=== PATIENT | female | born 2000 | race Caucasian/White ===

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

== ENCOUNTER 2019-04-18 10:45 | Emergency (ER) | payer MEDICAID ==
[~2019-04-18] VITALS: Ht 157.5 cm; Wt 64.9 kg
[2019-04-18 10:51] VITALS: Ht 157.5 cm; Wt 64.9 kg
[2019-04-18 11:07] VITALS: BP 118/70
== END 2019-04-18 11:07 | disposition home or self-care (01) ==
LOC: ED 10:45
DX: L30.9 Dermatitis, unspecified (principal)

== ENCOUNTER 2019-08-23 16:29 | Emergency (ER) | payer SELFPAY ==
[~2019-08-23] VITALS: Ht 162.6 cm; Wt 69.9 kg
[2019-08-23 16:36] VITALS: Ht 162.6 cm; Wt 69.9 kg
[2019-08-23 18:20] LABS: BASOPHIL % 0.5 % (0-2); PLATELET COUNT 180 x10^3mcL (130-400); RED CELL DISTRIBUTION WIDTH 12.1 % (11.5-14.5)
[2019-08-23 19:35] VITALS: BP 117/67
== END 2019-08-23 19:35 | disposition home or self-care (01) ==
LOC: ED 16:29
PROVIDERS: Emergency Medicine
DX: O26.891 Other specified pregnancy related conditions, first trimester (principal); R10.30 Lower abdominal pain, unspecified; Z3A.01 Less than 8 weeks gestation of pregnancy
CPT/HCPCS: 36415

== ENCOUNTER 2019-09-09 22:24 | Emergency (ER) | payer SELFPAY ==
[~2019-09-09] VITALS: Ht 160 cm; Wt 71.7 kg
[2019-09-09 22:30] VITALS: Ht 160 cm; Wt 71.7 kg
[2019-09-09 23:53] LABS: BASOPHIL % 0.4 % (0-2); PLATELET COUNT 172 x10^3mcL (130-400); RED CELL DISTRIBUTION WIDTH 12.4 % (11.5-14.5)
[2019-09-10 01:13] VITALS: BP 106/46
== END 2019-09-10 01:13 | disposition home or self-care (01) ==
LOC: ED 22:24
PROVIDERS: Emergency Medicine
DX: O26.891 Other specified pregnancy related conditions, first trimester (principal); N83.11 Corpus luteum cyst of right ovary; Z3A.08 8 weeks gestation of pregnancy
CPT/HCPCS: 36415; Q0092

== ENCOUNTER 2019-09-24 23:11 | Emergency (ER) | payer SELFPAY ==
[~2019-09-24] VITALS: Ht 167.6 cm; Wt 54.4 kg
[2019-09-24 23:18] VITALS: Ht 167.6 cm; Wt 54.4 kg
[2019-09-24 23:58] LABS: BASOPHIL % 0.6 % (0-2); PLATELET COUNT 181 x10^3mcL (130-400); RED CELL DISTRIBUTION WIDTH 11.8 % (11.5-14.5)
[2019-09-25 01:31] VITALS: BP 106/54
== END 2019-09-25 01:31 | disposition home or self-care (01) ==
LOC: ED 23:11
DX: O03.4 Incomplete spontaneous abortion without complication (principal)
CPT/HCPCS: 36415

== ENCOUNTER 2019-10-03 08:48 | Emergency (ER) | payer SELFPAY ==
[~2019-10-03] VITALS: Ht 160 cm; Wt 70.8 kg
[2019-10-03 08:57] VITALS: Ht 160 cm; Wt 70.8 kg
[2019-10-03 10:35] LABS: BASOPHIL % 0.6 % (0-2); PLATELET COUNT 147 x10^3mcL (130-400); RED CELL DISTRIBUTION WIDTH 12.2 % (11.5-14.5)
[2019-10-03 12:59] VITALS: BP 112/68
== END 2019-10-03 12:59 | disposition home or self-care (01) ==
LOC: ED 08:48
PROVIDERS: Emergency Medicine
DX: O03.9 Complete or unspecified spontaneous abortion without complication (principal)
CPT/HCPCS: J1885

== ENCOUNTER 2020-01-25 21:49 | Emergency (ER) | payer MEDICAID ==
[~2020-01-25] VITALS: Ht 160 cm; Wt 73.9 kg
[2020-01-25 21:56] VITALS: Ht 160 cm; Wt 73.9 kg
[2020-01-25 22:27] LABS: BASOPHIL % 0.5 % (0-2); PLATELET COUNT 183 x10^3mcL (130-400); RED CELL DISTRIBUTION WIDTH 13.5 % (11.5-14.5)
[2020-01-25 22:38] LABS: CALCIUM 8.9 mg/dL (8.5-10.1); CARBON DIOXIDE 23.5 mmol/L (21-32); CHLORIDE SERUM 102 mmol/L (98-107); CREATININE SERUM 0.5 mg/dL (0.6-1.0); GFR1 > 60 mL/min; GLUCOSE SERUM 93 mg/dL (74-106); POTASSIUM SERUM 4.1 mmol/L (3.5-5.1); SODIUM SERUM 136 mmol/L (136-145)
[2020-01-25 22:44] LABS: ALKALINE PHOSPHATASE 52 U/L (46-116); ALT/SGPT 42 U/L (14-59); AST/SGOT 33 U/L (15-37); BILIRUBIN TOTAL 0.46 mg/dL (0.20-1.00); LIPASE 164 IU/L (73-393); TOTAL PROTEIN, SERUM 6.7 g/dL (6.4-8.2)
[2020-01-25 22:49] LABS: ALBUMIN 3.2 g/dL (3.4-5.0)
[2020-01-25 23:44] VITALS: BP 112/64
== END 2020-01-25 23:44 | disposition home or self-care (01) ==
LOC: ED 21:49
PROVIDERS: Emergency Medicine
DX: O26.892 Other specified pregnancy related conditions, second trimester (principal); R10.2 Pelvic and perineal pain; R10.11 Right upper quadrant pain; Z3A.16 16 weeks gestation of pregnancy
CPT/HCPCS: 36415; 87491; 87591; Q0092

== ENCOUNTER 2020-02-20 08:32 | Emergency (ER) | payer MEDICAID ==
[~2020-02-20] VITALS: Ht 160 cm; Wt 75.3 kg
[2020-02-20 08:46] VITALS: Ht 160 cm; Wt 75.3 kg
[2020-02-20 09:48] LABS: BASOPHIL % 0.4 % (0-2); PLATELET COUNT 160 x10^3mcL (130-400)
[2020-02-20 10:48] LABS: microscopic required? YES; urine erythrocyte NEGATIVE (NEGATIVE)
[2020-02-20 10:54] LABS: CALCIUM 9.1 mg/dL (8.5-10.1); CHLORIDE SERUM 105 mmol/L (98-107); CREATININE SERUM 0.5 mg/dL (0.6-1.0); GFR1 > 60 mL/min; GLUCOSE SERUM 93 mg/dL (74-106); POTASSIUM SERUM 3.7 mmol/L (3.5-5.1); SODIUM SERUM 139 mmol/L (136-145)
[2020-02-20 10:58] LABS: ALKALINE PHOSPHATASE 63 U/L (46-116); ALT/SGPT 48 U/L (14-59); AST/SGOT 23 U/L (15-37); BILIRUBIN TOTAL 0.32 mg/dL (0.20-1.00); LIPASE 97 IU/L (73-393); TOTAL PROTEIN, SERUM 6.2 g/dL (6.4-8.2)
[2020-02-20 10:59] LABS: ALBUMIN 2.9 g/dL (3.4-5.0)
[2020-02-20 12:29] VITALS: BP 118/67
== END 2020-02-20 12:29 | disposition home or self-care (01) ==
LOC: ED 08:32
PROVIDERS: Emergency Medicine
DX: O23.42 Unspecified infection of urinary tract in pregnancy, second trimester (principal); O99.612 Diseases of the digestive system complicating pregnancy, second trimester; K80.20 Calculus of gallbladder without cholecystitis without obstruction; Z3A.16 16 weeks gestation of pregnancy
CPT/HCPCS: 36415

== ENCOUNTER 2020-03-18 14:21 | Emergency (ER) | payer SELFPAY ==
[~2020-03-18] VITALS: Ht 160 cm; Wt 79.8 kg
[2020-03-18 14:26] VITALS: Ht 160 cm; Wt 79.8 kg
[2020-03-18 15:36] LABS: BASOPHIL % 0.7 % (0-2); PLATELET COUNT 172 x10^3mcL (130-400)
[2020-03-18 15:39] LABS: CALCIUM 8.7 mg/dL (8.5-10.1); CARBON DIOXIDE 23.3 mmol/L (21-32); CHLORIDE SERUM 102 mmol/L (98-107); CREATININE SERUM 0.5 mg/dL (0.6-1.0); GFR1 > 60 mL/min; GLUCOSE SERUM 91 mg/dL (74-106); POTASSIUM SERUM 3.6 mmol/L (3.5-5.1); SODIUM SERUM 135 mmol/L (136-145)
[2020-03-18 15:44] LABS: ALKALINE PHOSPHATASE 70 U/L (46-116); ALT/SGPT 30 U/L (14-59); AST/SGOT 24 U/L (15-37); BILIRUBIN TOTAL 0.2 mg/dL (0.20-1.00); TOTAL PROTEIN, SERUM 6.5 g/dL (6.4-8.2)
[2020-03-18 15:46] LABS: ALBUMIN 2.9 g/dL (3.4-5.0)
[2020-03-18 16:59] VITALS: BP 111/61
[2020-03-18 17:03] LABS: UA SPECIFIC GRAVITY <=1.005 (1.005-1.035); microscopic required? YES; urine erythrocyte NEGATIVE (NEGATIVE)
== END 2020-03-18 16:59 | disposition home or self-care (01) ==
LOC: ED 14:21
PROVIDERS: Emergency Medicine
DX: O21.0 Mild hyperemesis gravidarum (principal); O16.2 Unspecified maternal hypertension, second trimester; Z3A.21 21 weeks gestation of pregnancy
CPT/HCPCS: 36415